=== PATIENT | female | born 1985 | race Caucasian/White ===

== ENCOUNTER 2016-06-27 08:09 | Emergency (ER) | payer OTHER ==
[~2016-06-27] VITALS: Ht 160 cm; Wt 85.0 kg
[~2016-06-27 08:09] MED LIST: BCPILLS PO; BUPR-79 PO; IBUP-1050 PO; LXP/10 PO; MULT-506 PO; OMEG10007 PO; VILA1TAB PO
[2016-06-27 08:23] VITALS: TEMP 36.7; Ht 160 cm; Wt 85.0 kg
--- NOTE | 2016-06-27 08:53 | EMERGENCY ROOM VISIT NOTE ---
History First contact with patient: 08:23 Chief Complaint: CHEST PAIN Stated Complaint: CHEST PAIN Nursing Triage Summary: pt here with chest pain x one hour that began while eating breakfast. pt states is sob. pt states pain is crushing. lungs clear. no hx. pt has only hx of depression and states has been under more stress. History of Present Illness The patient is a 31 year old female who presents to the Emergency Room with complaints of chest pain. The patient states that her chest pain started this morning during breakfast. She states that it is nonradiating and crushing. She rates her discomfort an 8/10. She states she has mild shortness of breath and pain with deep inspiration. The patient states she has also had mild nausea and palpitations. She denies earache, sore throat, cough or fever. She states she was recently treated for sinus infection several weeks ago. She denies any abdominal pain. She denies any history of similar. The patient has a history of depression and anxiety. She states she is taking her medications as prescribed. She denies any suicidal or homicidal patient. She does not wish to speak with behavioral health counselor. She states she has a counselor and has an appointment tomorrow. Review of Systems A 10 system review of systems was completed with positives and pertinent negatives listed in the HPI. Past Medical/Surgical History Medical Problems: (1) Anxiety (2) Depression Family History Patient reports no known family medical history. Social History Smoking Status: Never Smoker Alcohol Use: none Drug Use: none Marital Status: in relationship Housing Status: lives with roommate Occupation Status: [employer] student Current/Historical Medications Scheduled Control Pills ( Control Pills), 1 TAB PO DAILY Bupropion (Wellbutrin Sr), 150 MG PO DAILY Escitalopram Oxalate (Lexapro), 10 MG PO DAILY Fish Oil ([place]itcher-3), 1 CAP PO DAILY Multivitamin (Multivitamin), 1 TAB PO DAILY Scheduled PRN Ibuprofen (Advil), 400 MG PO BID PRN for Pain Lorazepam (Ativan), 1 TAB PO Q6H PRN for Anxiety/Agitation Allergies Coded Allergies: Fluoxetine (Verified Allergy, Intermediate, SHORTNESS OF BREATH, 06/27/16) Physical Exam Vital Signs Date Time Temp Pulse Resp B/P Pulse Ox O2 Delivery O2 Flow Rate FiO2 06/27/16 09:51 93 16 115/78 98 Room Air 06/27/16 08:23 36.7 80 16 159/124 95 Room Air 06/27/16 08:23 88 Physical Exam VITALS: Vitals are noted on the nurse's note and reviewed by myself. Vital signs stable. GENERAL: This is a 31-year-old female, in no acute distress, nondiaphoretic, well-developed well-nourished. SKIN: The skin was without rashes, erythema, edema, or bruising. There is no tenting of the skin. Capillary reflex less than 2 seconds. HEAD: Normocephalic atraumatic. EARS: External auditory canals clear, tympanic membranes pearly bose without erythema or effusion bilaterally. EYES: Pupils equal round and reactive to light and accommodation. Conjunctivae without injection, sclerae without icterus. Extraocular movements intact. NOSE: Patent, turbinates without inflammation or discharge. MOUTH: Mucous membranes moist. Tonsils are not enlarged. Pharynx without erythema or exudate. Uvula midline. Airway patent. Tongue does not deviate. NECK: Supple without nuchal rigidity. No lymphadenopathy. No thyromegaly. Cervical spine is nontender. No JVD. HEART: Regular rate and rhythm without murmurs gallops or rubs. LUNGS: Clear to auscultation bilaterally without wheezes, rales or rhonchi. No retractions or accessory muscle use. ABDOMEN: Positive bowel sounds x 4. Soft, nontender, without masses or organomegaly. MUSCULOSKELETAL: No muscle atrophy, erythema, or edema noted. Full range of motion without joint tenderness in all extremities. Normal gait. Strength 5/ 5 throughout. NEURO: Patient was alert and oriented to person place and time. The patient has an extremely flat affect. No focal neurological deficits. Medical Decision & Procedures ER Provider Diagnostic Interpretation: CHEST ONE VIEW PORTABLE HISTORY: Atypical chest pain COMPARISON: Chest 07/25/2015. FINDINGS: The lungs are clear. Cardiac silhouette is normal in size. No pleural effusions. No pneumothorax. IMPRESSION: No acute process. Laboratory Results 06/27/16 08:20 Red Blood Count 5.12, Mean Corpuscular Volume 87.1, Mean Corpuscular Hemoglobin 30.1, Mean Corpuscular Hemoglobin Concent 34.5, Mean Platelet Volume 11.1, Neutrophils (%) (Auto) 58.2, Lymphocytes (%) (Auto) 27.4, Monocytes (%) (Auto) 10.6, Eosinophils (%) (Auto) 3.3, Basophils (%) (Auto) 0.3, Neutrophils # (Auto ) 3.67, Lymphocytes # (Auto) 1.73, Monocytes # (Auto) 0.67, Eosinophils # (Auto ) 0.21, Basophils # (Auto) 0.02 06/27/16 08:20 Test 06/27/16 08:20 06/27/16 09:40 White Blood Count 6.31 K/uL (4.8-10.8) Red Blood Count 5.12 M/uL (4.2-5.4) Hemoglobin 15.4 g/dL (12.0-16.0) Hematocrit 44.6 % (37-47) Mean Corpuscular Volume 87.1 fL (80-100) Mean Corpuscular Hemoglobin 30.1 pg (25-34) Mean Corpuscular Hemoglobin Concent 34.5 g/dl (32-36) Platelet Count 332 K/uL (130-400) Mean Platelet Volume 11.1 fL (7.4-10.4) Neutrophils (%) (Auto) 58.2 % Lymphocytes (%) (Auto) 27.4 % Monocytes (%) (Auto) 10.6 % Eosinophils (%) (Auto) 3.3 % Basophils (%) (Auto) 0.3 % Neutrophils # (Auto) 3.67 K/uL (1.4-6.5) Lymphocytes # (Auto) 1.73 K/uL (1.2-3.4) Monocytes # (Auto) 0.67 K/uL (0.11-0.59) Eosinophils # (Auto) 0.21 K/uL (0-0.5) Basophils # (Auto) 0.02 K/uL (0-0.2) RDW Standard Deviation 43.2 fL (36.4-46.3) RDW Coefficient of Variation 13.5 % (11.5-14.5) Immature Granulocyte % (Auto) 0.2 % Immature Granulocyte # (Auto) 0.01 K/uL (0.00-0.02) Prothrombin Time 10.1 SECONDS (9.0-12.0) Prothromb Time International Ratio 0.9 (0.9-1.1) Activated Partial Thromboplast Time 28.5 SECONDS (21.0-31.0) Partial Thromboplastin Ratio 1.1 D-Dimer 210 ug/L FEU (0-500) Anion Gap 9.0 mmol/L (3-11) Est Creatinine Clear Calc Drug Dose 92.9 ml/min Estimated GFR () 98.7 Estimated GFR (Non- 85.2 BUN/Creatinine Ratio 10.0 (10-20) Calcium Level 9.0 mg/dl (8.5-10.1) Total Bilirubin 0.4 mg/dl (0.2-1) Aspartate Amino Transf (AST/SGOT) 15 U/L (15-37) Alanine Aminotransferase (ALT/SGPT) 27 U/L (12-78) Alkaline Phosphatase 75 U/L (45-117) Troponin I < 0.015 ng/ml (0-0.045) Total Protein 7.8 gm/dl (6.4-8.2) Albumin 3.7 gm/dl (3.4-5.0) Globulin 4.1 gm/dl (2.5-4.0) Albumin/Globulin Ratio 0.9 (0.9-2) Lipase 203 U/L (73-393) Thyroid Stimulating Hormone (TSH) 2.010 uIu/ml (0.300-4.500) Urine Color YELLOW Urine Appearance CLOUDY (CLEAR) Urine pH 7.0 (4.5-7.5) Urine Specific [place] 1.015 (1.000-1.030) Urine Protein NEG (NEG) Urine Glucose (UA) NEG (NEG) Urine Ketones NEG (NEG) Urine Occult Blood TRACE (NEG) Urine Nitrite NEG (NEG) Urine Bilirubin NEG (NEG) Urine Urobilinogen NEG (NEG) Urine Leukocyte Esterase NEG (NEG) Urine RBC 0-4 /hpf (0-4) Urine WBC 1-5 /hpf (0-5) Urine Epithelial Cells 5-10 /lpf (0-5) Urine Amorphous Sediment PRESENT (NONE PRSENT) Urine Bacteria 1+ (NEG) Medications Administered Medications (Trade) Dose Ordered Sig/Juan M Route Start Time Stop Time Status Last Admin Dose Admin Al Hydroxide/Mg Hydroxide (Maalox Susp) 30 ml STK-MED ONCE .ROUTE 06/27/16 09:49 06/27/16 09:50 DC 06/27/16 09:49 30 ML Lidocaine HCl (Viscous Lidocaine 2% Soln) 20 ml STK-MED ONCE .ROUTE 06/27/16 09:49 06/27/16 09:50 DC 06/27/16 09:49 20 ML Procedure The patient was monitored on a score caller. They maintained a normal sinus rhythm without ectopy. ECG Indication: chest pain Rate (beats per minute): 82 Comparison ECG Date: no prior available ED Course The patient was seen and examined. Previous visits were reviewed. The patient does not have a fever or leukocytosis. She does not have any significant electrolyte abnormality. Troponin was not elevated. Lipase was not elevated. TSH was within normal limits. INR was 0.9. D-dimer was negative. Urinalysis suggests contamination. EKG does not reveal any acute ischemia or arrhythmia The patient presents to the emergency department with nonradiating chest pain. The above workup does not reveal any obvious abnormality. The patient has an extremely flat affect. The patient has a history of depression, anxiety and states she has had panic attacks in the past. She did not wish to speak with a therapist today. She denied any suicidal or homicidal ideation. She does have an appointment with her counselor tomorrow. The patient was given a GI cocktail with no improvement in her symptoms. I did agree to give her a very small prescription for Ativan. She should return to the ER with any worsening symptoms. The case was discussed with Dr. Chavez who agrees with the assessment and treatment plan Medical Decision DIFFERENTIAL DIAGNOSIS: Aortic dissection, myocarditis, pericarditis, cervical disc disease, costochondritis, herpes zoster, rib fracture, pleuritis, pneumonia , pulmonary embolus, tension pneumothorax, anxiety disorder, somatoform disorder , choledocholithiasis, status, esophagitis, esophageal spasm, esophageal reflux , esophageal rupture, pancreatitis, peptic ulcer disease, cardiac ischemia, ST elevation [place], acute coronary syndrome, arrhythmia, coronary artery vasospasm. vavular heart disease, coronary artery disease, among others. Impression Primary Impression: Substernal precordial chest pain Additional Impression: Anxiety Departure Information Dispostion Home / Self-Care Condition GOOD Prescriptions Lorazepam (ATIVAN) 1 Mg Tab 1 TAB PO Q6H Y for Anxiety/Agitation, #12 TAB Prov: Celeste Clark PA-C 06/27/16 Referrals [facility] (PCP) Forms HOME CARE DOCUMENTATION FORM, IMPORTANT VISIT INFORMATION, School Instructions Patient Instructions Chest Pain - [facility], ED Panic Attack, My [facility] Additional Instructions Ativan only as needed, as prescribed Keep your appointment with your counselor tomorrow as scheduled Return with any worsening symptoms Otherwise, follow up with your family doctor by the end of the week if symptoms persist Problem Qualifiers
[2016-06-27 08:56] LABS: BASO % 0.3 %; BASO ABS # 0.02 K/uL (0-0.2); COMPLETE YES; EOS % 3.3 %; HEMATOCRIT 44.6 % (37-47); IG% 0.2 %; LYMPH % 27.4 %; LYMPH ABS # 1.73 K/uL (1.2-3.4); MEAN CELL VOLUME 87.1 fL (80-100); MEAN CORPUSCULAR HEMOGLOBIN 30.1 pg (25-34); MEAN CORPUSCULAR HGB CONC 34.5 g/dl (32-36); MEAN PLATELET VOLUME 11.1 fL (7.4-10.4); MONO % 10.6 %; NEUT % 58.2 %; PLATELET COUNT 332 K/uL (130-400); RED BLOOD COUNT 5.12 M/uL (4.2-5.4); WHITE BLOOD COUNT 6.31 K/uL (4.8-10.8)
--- NOTE | 2016-06-27 09:01 | DIAGNOSTIC IMAGING REPORT ---
CHEST ONE VIEW PORTABLE HISTORY: Atypical chest pain COMPARISON: Chest 07/25/2015. FINDINGS: The lungs are clear. Cardiac silhouette is normal in size. No pleural effusions. No pneumothorax. IMPRESSION: No acute process. Electronically signed by: William Hair M.D. 06/27/2016 9:00 AM Dictated Date/Time: 06/27/2016 8:59 AM
[2016-06-27 09:03] LABS: ALT/SGPT 27 U/L (12-78); BLOOD UREA NITROGEN 9 mg/dl (7-18); CARBON DIOXIDE 25 mmol/L (21-32); CHLORIDE 106 mmol/L (98-107); CREATININE 0.89 mg/dl (0.60-1.20); GLUCOSE 101 mg/dl (70-99); POTASSIUM 3.9 mmol/L (3.5-5.1); SODIUM 140 mmol/L (136-145)
[2016-06-27 09:14] LABS: ALB/GLOB RATIO 0.9 (0.9-2); ALKALINE PHOSPHATASE 75 U/L (45-117); AST/SGOT 15 U/L (15-37)
[2016-06-27 09:18] LABS: INR 0.9 (0.9-1.1); PARTIAL THROMBOPLASTIN RATIO 1.1; PROTHROMBIN TIME (PATIENT) 10.1 SECONDS (9.0-12.0)
[2016-06-27] MEDS ORDERED: GI COCKTAIL PO STA (09:36)
[2016-06-27] MEDS ORDERED: ALUMINUM/MAGNESIUM SUSP 30 ML UDC ONE (09:49)
[2016-06-27] MEDS ORDERED: LIDOCAINE HCL 2% VISC SOLN 20 ML UDC ONE (09:49)
[2016-06-27 09:51] VITALS: BP 115/78; PULSE 93; O2SAT 98
[2016-06-27 10:06] LABS: MANUAL MICROSCOPIC REQUIRED? YES; URINE APPEARANCE CLOUDY (CLEAR); URINE BILIRUBIN NEG (NEG); URINE COLOR YELLOW; URINE NITRITE NEG (NEG); URINE SPECIFIC GRAVITY 1.015 (1.000-1.030); UROBILINOGEN NEG (NEG)
[2016-06-27] MEDS ORDERED: ATV/1 PO (10:06)
[2016-06-27 10:10] LABS: REVIEW REQ? NO
[2016-06-27 10:19] LABS: URINE AMORPHOUS SEDIMENT PRESENT (NONE PRSENT); URINE BACTERIA 1+ (NEG); URINE RBC 0-4 /hpf (0-4); ZZUR CULT IF INDIC CLEAN CATCH NO
== END 2016-06-27 10:13 | disposition home or self-care (01) ==
LOC: EDBD 08:09 → C.EDB 08:10
DX: R07.2 Precordial pain (principal); F41.9 Anxiety disorder, unspecified; F32.9 Major depressive disorder, single episode, unspecified; Z79.3 Long term (current) use of hormonal contraceptives; Z79.899 Other long term (current) drug therapy

== ENCOUNTER 2017-02-05 01:00 | Emergency (ER) | payer OTHER ==
[~2017-02-05] VITALS: Ht 162.6 cm; Wt 90.7 kg
[~2017-02-05 01:00] MED LIST changes: -VILA1TAB PO
[2017-02-05 01:03] VITALS: TEMP 36.8; Ht 162.6 cm; Wt 90.7 kg
--- NOTE | 2017-02-05 01:31 | EMERGENCY ROOM VISIT NOTE ---
History Report prepared by Adrianne: Nichole Marr Under the Supervision of: Dr. Joan Ram D.O. First contact with patient: 01:08 Chief Complaint: MENTAL HEALTH EVALUATION Stated Complaint: DEPRESSION History of Present Illness The patient is a 31 year old female who presents to the Emergency Room for a mental health evaluation. The patient has been feeling depressed recently and has a history of recurrent episodes of depression. She states she has been having worsening suicidal thoughts with no plan. She follows up with Dr. Gongora- psychiatrist at [facility] and notes recent changes to her psychiatry medications. She came to the ED because she states she "wanted to feel safe and to make sure I wouldn't hurt myself". She has been admitted for psychiatry reasons previously. She notes some nausea with her new medications but denies any chest pain, vomiting, diarrhea, leg cramping or swelling, or abdominal pain. Her last menstrual period was in November which is normal for the control she is on. She does not want a inpatient stay because she is afraid it will affect her graduation status. 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 She notes increased stress with school. The patient is on Wellbutrin for depression and had history of overdosing on pills in 2004. Source of History: patient Onset: tonight Position: other (global) Quality: other (suicidal ideations) Timing: worsening Associated Symptoms: + nausea, No fevers, No chest pain, No vomiting Review of Systems See HPI for pertinent positives & negatives. A total of 10 systems reviewed and were otherwise negative. Past Medical & Surgical Medical Problems: (1) Anxiety (2) Depression Family History Patient reports no known family medical history. Social History Smoking Status: Never Smoker Alcohol Use: none Drug Use: none Marital Status: in relationship Housing Status: lives with roommate Occupation Status: [employer] student Current/Historical Medications Scheduled Control Pills ( Control Pills), 1 TAB PO DAILY Bupropion (Wellbutrin Sr), 150 MG PO DAILY Escitalopram Oxalate (Lexapro), 10 MG PO DAILY Fish Oil ([place]-3), 1 CAP PO DAILY Multivitamin (Multivitamin), 1 TAB PO DAILY Vortioxetine HBr (Trintellix), 5 MG PO DAILY Scheduled PRN Ibuprofen (Advil), 400 MG PO BID PRN for Pain Lorazepam (Ativan), 1 MG PO DAILY PRN for panic attacks Allergies Coded Allergies: Fluoxetine (Verified Allergy, Intermediate, SHORTNESS OF BREATH, 02/05/17) Venlafaxine (Verified Allergy, Intermediate, uncontrolled left arm movement, 02/05/17) Physical Exam Vital Signs Date Time Temp Pulse Resp B/P (MAP) Pulse Ox O2 Delivery O2 Flow Rate FiO2 02/05/17 04:11 77 16 129/86 97 02/05/17 01:03 36.8 90 18 165/114 99 Room Air Physical Exam HEENT: Head - normocephalic and atraumatic Pupils are equal, round, and reactive to light. Extraocular eye muscles are intact, and sclera are anicteric. Nose - moist nasal mucosa without discharge. Mouth - moist buccal mucosa. Oropharynx is nonerythematous and there is no tonsillar exudate or edema noted. Neck: Supple; no JVD, nuchal rigidity, cervical lymphadenopathy. Heart: Regular rate and rhythm. There is a normal S1 and S2 with no murmurs, clicks, or gallops appreciated. Lungs: Clear to auscultation bilaterally with no wheezes, rales, or rhonchi. Abdomen: Soft, completely nontender, nondistended, with good bowel sounds. There are no palpable pulsatile masses or hepatosplenomegaly. There is no guarding, rigidity, or rebound noted. Extremities: No evidence of cyanosis, clubbing, or edema. There are easily palpable peripheral pulses. Skin: warm and dry with good turgor and no rashes. Psych: extremely flat affect, depressed and suicidal thoughts with no plan. Medical Decision & Procedures Laboratory Results 02/05/17 01:37 02/05/17 01:37 Test 02/05/17 01:18 02/05/17 01:37 Urine Color YELLOW Urine Appearance CLEAR (CLEAR) Urine pH 6.0 (4.5-7.5) Urine Specific [place] 1.018 (1.000-1.030) Urine Protein NEG (NEG) Urine Glucose (UA) NEG (NEG) Urine Ketones NEG (NEG) Urine Occult Blood TRACE (NEG) Urine Nitrite NEG (NEG) Urine Bilirubin NEG (NEG) Urine Urobilinogen NEG (NEG) Urine Leukocyte Esterase NEG (NEG) Urine WBC (Auto) 1-5 /hpf (0-5) Urine RBC (Auto) 5-10 /hpf (0-4) Urine Hyaline Casts (Auto) 0 /lpf (0-5) Urine Epithelial Cells (Auto) 0-5 /lpf (0-5) Urine Bacteria (Auto) NEG (NEG) Urine Test NEG (NEG) Urine Opiates Screen NEG (NEG) Urine Methadone, Qualitative NEG (NEG) Urine Barbiturates NEG (NEG) Urine Phencyclidine (PCP) Level NEG (NEG) Ur Amphetamine/Methamphetamine NEG (NEG) MDMA (Ecstasy) Screen POS (NEG) Urine Benzodiazepines Screen NEG (NEG) Urine Cocaine Metabolite NEG (NEG) Urine Marijuana (THC) NEG (NEG) Red Blood Count 4.78 M/uL (4.2-5.4) Mean Corpuscular Volume 85.1 fL (80-100) Mean Corpuscular Hemoglobin 28.5 pg (25-34) Mean Corpuscular Hemoglobin Concent 33.4 g/dl (32-36) RDW Standard Deviation 42.8 fL (36.4-46.3) RDW Coefficient of Variation 13.9 % (11.5-14.5) Mean Platelet Volume 9.9 fL (7.4-10.4) Anion Gap 12.0 mmol/L (3-11) Est Creatinine Clear Calc Drug Dose 105.2 ml/min Estimated GFR () 107.4 Estimated GFR (Non- 92.7 BUN/Creatinine Ratio 12.4 (10-20) Calcium Level 8.4 mg/dl (8.5-10.1) Total Bilirubin 0.2 mg/dl (0.2-1) Direct Bilirubin < 0.1 mg/dl (0-0.2) Aspartate Amino Transf (AST/SGOT) 13 U/L (15-37) Alanine Aminotransferase (ALT/SGPT) 25 U/L (12-78) Alkaline Phosphatase 78 U/L (45-117) Total Protein 7.4 gm/dl (6.4-8.2) Albumin 3.3 gm/dl (3.4-5.0) Thyroid Stimulating Hormone (TSH) 5.090 uIu/ml (0.300-4.500) Salicylates Level < 1.7 mg/dl (2.8-20) Acetaminophen Level < 2 ug/ml (10-30) Ethyl Alcohol mg/dL < 3.0 mg/dl (0-3) Laboratory results per my review. ED Course 0115: Past medical records reviewed. The patient was evaluated in room A6. A complete history and physical exam was performed. Labs were drawn as above. 0336: Staff from [address] [place] [address] went in and talked to the patient. She is no longer suicidal. The patient has an appointment with her therapist in 4 days and an appointment with her psychiatrist in 7 days. She is looking forward to the future and excited to spend Thanksgiving with her grandmother. 0401: I reevaluated the patient and she is resting comfortably. I confirmed that she is no longer suicidal. She does wish to go home. We talked about safety planning. 0430: Upon reevaluation, the patient is resting. I discussed findings and results with her. She verbalized agreement of the treatment plan. The patient was discharged home. Medical Decision The patient is a 31 year old female who presents to the Emergency Room for a mental health evaluation. Differential diagnosis includes:suicidal ideation, manuel disorder thought disorder, depression. Lab results show: alcohol negative, Tylenol negative, Motrin negative, Tox screen positive for MDMA, urine negative, 5-10 red blood cells in urine, TSH elevated at 5.0, glucose 104, normal renal function, normal LFTs, normal white count normal H & H. This is a 31-year-old female patient with a history of depression who presents after having some suicidal thoughts this evening. At this time, she is no longer suicidal and wishes to be discharged home. She has follow-up scheduled with her therapist and psychiatrist. On laboratory testing, the patient's TSH was noted to be elevated. I've asked her to follow-up with [facility] [place] with regards to this finding. This certainly could be contributing to her depression Blood Pressure Screening Patient's blood pressure: Normal blood pressure Impression Primary Impression: Mood disorder Additional Impression: Hypothyroidism Scribe Attestation The scribe's documentation has been prepared under my direction and personally reviewed by me in its entirety. I confirm that the note above accurately reflects all work, treatment, procedures, and medical decision making performed by me. Departure Information Dispostion Home / Self-Care Referrals No Doctor, Assigned (PCP) Forms HOME CARE DOCUMENTATION FORM, IMPORTANT VISIT INFORMATION Patient Instructions Depression Causes, Depression Counseling, My [facility] Additional Instructions Please follow up closely with your therapist on . Return here to the ER if symptoms worsen or you feel more suicidal Call MARYBETH - [phone] if needed Problem Qualifiers Additional Impression: Hypothyroidism Hypothyroidism type: unspecified Qualified Codes: E03.9 - Hypothyroidism, unspecified
[2017-02-05 01:36] LABS: MANUAL MICROSCOPIC REQUIRED? NO; REVIEW REQ? NO; URINE APPEARANCE CLEAR (CLEAR); URINE BILIRUBIN NEG (NEG); URINE COLOR YELLOW; URINE EPITHELIAL CELL AUTO 0-5 /lpf (0-5); URINE NITRITE NEG (NEG); URINE SPECIFIC GRAVITY 1.018 (1.000-1.030); UROBILINOGEN NEG (NEG)
[2017-02-05 01:50] LABS: HEMATOCRIT 40.7 % (37-47); MEAN CELL VOLUME 85.1 fL (80-100); MEAN CORPUSCULAR HEMOGLOBIN 28.5 pg (25-34); MEAN CORPUSCULAR HGB CONC 33.4 g/dl (32-36); MEAN PLATELET VOLUME 9.9 fL (7.4-10.4); PLATELET COUNT 322 K/uL (130-400); RED BLOOD COUNT 4.78 M/uL (4.2-5.4); WHITE BLOOD COUNT 9.55 K/uL (4.8-10.8)
[2017-02-05] MEDS ORDERED: VORT1TAB PO (01:50)
[2017-02-05] MEDS ORDERED: ATV/1 PO (01:50)
[2017-02-05 01:55] LABS: BENZODIAZEPINE, URINE NEG (NEG); COCAINE,URINE NEG (NEG); PHENCYCLIDINE, URINE NEG (NEG)
[2017-02-05 02:09] LABS: ALT/SGPT 25 U/L (12-78); AST/SGOT 13 U/L (15-37); BLOOD UREA NITROGEN 10 mg/dl (7-18); BUN/CREATININE RATIO 12.4 (10-20); CALCIUM 8.4 mg/dl (8.5-10.1); CARBON DIOXIDE 23 mmol/L (21-32); CHLORIDE 104 mmol/L (98-107); CREATININE 0.83 mg/dl (0.60-1.20); GLUCOSE 104 mg/dl (70-99); POTASSIUM 3.5 mmol/L (3.5-5.1); SODIUM 139 mmol/L (136-145)
[2017-02-05 02:20] LABS: ALKALINE PHOSPHATASE 78 U/L (45-117)
[2017-02-05 02:53] LABS: ACETAMINOPHEN < 2 ug/ml (10-30)
[2017-02-05 04:11] VITALS: BP 129/86; PULSE 77; O2SAT 97
[2017-02-05] MEDS ORDERED: BUPRTAB PO (11:16)
== END 2017-02-05 04:12 | disposition home or self-care (01) ==
LOC: C.EDB 01:01 → C.EDA 04:12
DX: F39 Unspecified mood [affective] disorder (principal); E03.9 Hypothyroidism, unspecified; F41.9 Anxiety disorder, unspecified; Z91.5 Personal history of self-harm; Z79.899 Other long term (current) drug therapy

== ENCOUNTER 2017-02-05 10:49 | Inpatient (IN) | payer OTHER ==
[~2017-02-05] VITALS: Ht 160 cm; Wt 89.9 kg
[~2017-02-05 10:49] MED LIST changes: +ATV/1 PO; +VORT1TAB PO
[2017-02-05] MEDS ORDERED: BUPRTAB PO (11:16)
[2017-02-05 11:29] LABS: URINE APPEARANCE CLEAR (CLEAR); URINE COLOR DK YELLOW; URINE EPITHELIAL CELL AUTO 20-30 /lpf (0-5); URINE NITRITE NEG (NEG); URINE PH 6.5 (4.5-7.5); URINE SPECIFIC GRAVITY 1.028 (1.000-1.030); UROBILINOGEN NEG (NEG); ZZUR CULT IF INDIC CLEAN CATCH NO
[2017-02-05 11:31] LABS: MANUAL MICROSCOPIC REQUIRED? NO; REVIEW REQ? NO
[2017-02-05 11:32] LABS: PREG INTERNAL NEGATIVE QC NEG CLEAR BACKGROUND; PREG INTERNAL POSITIVE QC POS CONTROL LINE; URINE BILIRUBIN NEG (NEG)
[2017-02-05 11:35] LABS: BASO % 0.4 %; BASO ABS # 0.03 K/uL (0-0.2); COMPLETE YES; EOS % 2.1 %; HEMATOCRIT 44.8 % (37-47); IG% 0.1 %; LYMPH % 24.1 %; LYMPH ABS # 1.81 K/uL (1.2-3.4); MEAN CORPUSCULAR HEMOGLOBIN 28.2 pg (25-34); MEAN CORPUSCULAR HGB CONC 32.8 g/dl (32-36); MEAN PLATELET VOLUME 10.1 fL (7.4-10.4); MONO % 7.2 %; NEUT % 66.1 %; PLATELET COUNT 363 K/uL (130-400); RED BLOOD COUNT 5.21 M/uL (4.2-5.4)
[2017-02-05 11:53] LABS: BUN/CREATININE RATIO 8.7 (10-20); CALCIUM 8.8 mg/dl (8.5-10.1); CREATININE 0.94 mg/dl (0.60-1.20); POTASSIUM 3.6 mmol/L (3.5-5.1)
[2017-02-05 12:02] LABS: ACETAMINOPHEN < 2 ug/ml (10-30)
[2017-02-05 12:04] LABS: ALB/GLOB RATIO 0.8 (0.9-2); THYROID STIMULATING HORMONE 3.79 uIu/ml (0.300-4.500)
[2017-02-05 13:17] LABS: BENZODIAZEPINE, URINE NEG (NEG); COCAINE,URINE NEG (NEG); PHENCYCLIDINE, URINE NEG (NEG)
--- NOTE | 2017-02-05 13:54 | EMERGENCY ROOM VISIT NOTE ---
History Report prepared by Adrianne: Vita Wade Under the Supervision of: Dr. Vicente Duran D.O. First contact with patient: 11:25 Chief Complaint: MENTAL HEALTH EVALUATION Stated Complaint: DEPRESSION History of Present Illness The patient is a 31 year old female who presents to the Emergency Room for a mental health evaluation. The patient has a history of depression. She has been feeling more depressed recently with suicidal thoughts. She denies any active suicidal plan. She states that she is having thoughts of not being able "to handle life anymore." The patient has been more stressed lately because of graduate school. She is having a hard time keeping up with her work "when I am too tired to brush my teeth." The patient was seen in the ED last night for these symptoms. She was discharged at 4am. At that time she was reporting depression with suicidal thoughts. She did not feel that she needed inpatient treatment at that time. She states that she was concerned inpatient treatment would affect her graduation status. The patient states that since she left the hospital this morning her symptoms have worsened. She states that she felt unable to go on with her day. She is now willing for inpatient treatment. The patient has been inpatient in the past during her time in undergraduate school. She states that school and the stress associated with school always seems to exacerbate her depression. Source of History: patient Onset: EXECUTIVE VICE PRESIDENT OF SALES Position: other (mental health) Quality: other (depression) Timing: worsening Modifying Factors (Worsening): other (school/stress) Associated Symptoms: + fatigue Note: Pt admits to suicidal thoughts. Review of Systems See HPI for pertinent positives & negatives. A total of 10 systems reviewed and were otherwise negative. Past Medical & Surgical Medical Problems: (1) Anxiety (2) Depression Family History Patient reports no known family medical history. Social History Smoking Status: Never Smoker Alcohol Use: none Drug Use: none Marital Status: in relationship Housing Status: lives with roommate Occupation Status: [employer] student Current/Historical Medications Scheduled Control Pills ( Control Pills), 1 TAB PO DAILY Bupropion Hcl (Wellbutrin Xl), 150 MG PO QAM Escitalopram Oxalate (Lexapro), 10 MG PO DAILY Fish Oil ([place]-3), 1 CAP PO DAILY Multivitamin (Multivitamin), 1 TAB PO DAILY Vortioxetine HBr (Trintellix), 5 MG PO DAILY Scheduled PRN Ibuprofen (Advil), 400 MG PO BID PRN for Pain Lorazepam (Ativan), 1 MG PO DAILY PRN for panic attacks Allergies Coded Allergies: Fluoxetine (Verified Allergy, Intermediate, SHORTNESS OF BREATH, 02/05/17) Venlafaxine (Verified Allergy, Intermediate, uncontrolled left arm movement, 02/05/17) Physical Exam Vital Signs Date Time Temp Pulse Resp B/P (MAP) Pulse Ox O2 Delivery O2 Flow Rate FiO2 02/05/17 10:52 37.0 102 16 152/108 97 Room Air Physical Exam CONSTITUTIONAL/VITAL SIGNS: Reviewed / noted above. GENERAL: Non-toxic in appearance. INTEGUMENTARY: Warm, dry, and [place]. HEAD: Normocephalic. EYES: without scleral icterus or trauma. ENT/OROPHARYNX: clear and moist. LYMPHADENOPATHY/NECK: Is supple without lymphadenopathy or meningismus. RESPIRATORY: Lungs clear and equal. CARDIOVASCULAR: Regular rate and rhythm. GI/ABDOMEN: Soft and nontender. No organomegaly or pulsatile mass. No rebound or guarding. Normal bowel sounds. EXTREMITIES: Warm and well perfused. BACK: No CVA tenderness. NEUROLOGICAL: Intact without focal deficits. PSYCHIATRIC: depressed affect. MUSCULOSKELETAL: Normally developed with good muscle tone. Medical Decision & Procedures Laboratory Results 02/05/17 11:15 Red Blood Count 5.21, Mean Corpuscular Volume 86.0, Mean Corpuscular Hemoglobin 28.2, Mean Corpuscular Hemoglobin Concent 32.8, Mean Platelet Volume 10.1, Neutrophils (%) (Auto) 66.1, Lymphocytes (%) (Auto) 24.1, Monocytes (%) (Auto) 7.2, Eosinophils (%) (Auto) 2.1, Basophils (%) (Auto) 0.4, Neutrophils # (Auto) 4.95, Lymphocytes # (Auto) 1.81, Monocytes # (Auto) 0.54, Eosinophils # (Auto) 0.16, Basophils # (Auto) 0.03 02/05/17 11:15 Test 02/05/17 11:12 02/05/17 11:15 Urine Color DK YELLOW Urine Appearance CLEAR (CLEAR) Urine pH 6.5 (4.5-7.5) Urine Specific [place] 1.028 (1.000-1.030) Urine Protein NEG (NEG) Urine Glucose (UA) NEG (NEG) Urine Ketones TRACE (NEG) Urine Occult Blood 1+ (NEG) Urine Nitrite NEG (NEG) Urine Bilirubin NEG (NEG) Urine Urobilinogen NEG (NEG) Urine Leukocyte Esterase NEG (NEG) Urine WBC (Auto) 1-5 /hpf (0-5) Urine RBC (Auto) 10-30 /hpf (0-4) Urine Hyaline Casts (Auto) 1-5 /lpf (0-5) Urine Epithelial Cells (Auto) 20-30 /lpf (0-5) Urine Bacteria (Auto) NEG (NEG) Urine Test NEG (NEG) Urine Opiates Screen NEG (NEG) Urine Methadone, Qualitative NEG (NEG) Urine Barbiturates NEG (NEG) Urine Phencyclidine (PCP) Level NEG (NEG) Ur Amphetamine/Methamphetamine NEG (NEG) MDMA (Ecstasy) Screen POS (NEG) Urine Benzodiazepines Screen NEG (NEG) Urine Cocaine Metabolite NEG (NEG) Urine Marijuana (THC) NEG (NEG) White Blood Count 7.50 K/uL (4.8-10.8) Red Blood Count 5.21 M/uL (4.2-5.4) Hemoglobin 14.7 g/dL (12.0-16.0) Hematocrit 44.8 % (37-47) Mean Corpuscular Volume 86.0 fL (80-100) Mean Corpuscular Hemoglobin 28.2 pg (25-34) Mean Corpuscular Hemoglobin Concent 32.8 g/dl (32-36) Platelet Count 363 K/uL (130-400) Mean Platelet Volume 10.1 fL (7.4-10.4) Neutrophils (%) (Auto) 66.1 % Lymphocytes (%) (Auto) 24.1 % Monocytes (%) (Auto) 7.2 % Eosinophils (%) (Auto) 2.1 % Basophils (%) (Auto) 0.4 % Neutrophils # (Auto) 4.95 K/uL (1.4-6.5) Lymphocytes # (Auto) 1.81 K/uL (1.2-3.4) Monocytes # (Auto) 0.54 K/uL (0.11-0.59) Eosinophils # (Auto) 0.16 K/uL (0-0.5) Basophils # (Auto) 0.03 K/uL (0-0.2) RDW Standard Deviation 43.4 fL (36.4-46.3) RDW Coefficient of Variation 13.8 % (11.5-14.5) Immature Granulocyte % (Auto) 0.1 % Immature Granulocyte # (Auto) 0.01 K/uL (0.00-0.02) Anion Gap 10.0 mmol/L (3-11) Est Creatinine Clear Calc Drug Dose 90.6 ml/min Estimated GFR () 92.4 Estimated GFR (Non- 79.7 BUN/Creatinine Ratio 8.7 (10-20) Calcium Level 8.8 mg/dl (8.5-10.1) Total Bilirubin 0.5 mg/dl (0.2-1) Aspartate Amino Transf (AST/SGOT) 16 U/L (15-37) Alanine Aminotransferase (ALT/SGPT) 27 U/L (12-78) Alkaline Phosphatase 92 U/L (45-117) Total Protein 8.3 gm/dl (6.4-8.2) Albumin 3.7 gm/dl (3.4-5.0) Globulin 4.6 gm/dl (2.5-4.0) Albumin/Globulin Ratio 0.8 (0.9-2) Thyroid Stimulating Hormone (TSH) 3.790 uIu/ml (0.300-4.500) Salicylates Level < 1.7 mg/dl (2.8-20) Acetaminophen Level < 2 ug/ml (10-30) Ethyl Alcohol mg/dL < 3.0 mg/dl (0-3) Laboratory results as stated above per my review. ED Course 1125: Previous medical records were reviewed. The patient was evaluated in room A8. A complete history and physical examination was performed. 1404: I updated the patient and she is doing well. 1428: The patient has been accepted to [facility] for further management. Medical Decision Differential includes toxic ingestions, self-mutilation, suicidal ideation, suicide attempt, and depression. This is a 31-year-old female who presents to the ED with a chief complaint of depression and suicidal thoughts. The patient has no plan. She was seen here less than 24 hours for the same. At the time she felt that she was able to go home and she was felt to be stable for discharge. The patient reports stressors at school as a cause for her symptoms. Her physical exam was unremarkable. Blood work was unremarkable. She is not . Tox screen did not show any significant abnormalities. The patient was felt to be stable for psychiatric evaluation/inpatient management and her discharge pending formal mental health evaluation. The patient has been accepted to [facility]. Medication Reconcilliation Current Medication List: was personally reviewed by me Blood Pressure Screening Patient's blood pressure: Elevated blood pressure Blood pressure disposition: Elevated BP felt to be situational Impression Primary Impression: Depression Scribe Attestation The scribe's documentation has been prepared under my direction and personally reviewed by me in its entirety. I confirm that the note above accurately reflects all work, treatment, procedures, and medical decision making performed by me. Departure Information Referrals No Doctor, Assigned (PCP) Patient Instructions My [facility]
[2017-02-05] MEDS ORDERED: BISMUTH SUBSALICYLATE PER ML OMNICELL CHARGE PO PRN (15:30)
[2017-02-05] MEDS ORDERED: MAGNESIUM HYDROXIDE SUSP 30 ML UDC PO PRN (15:30)
[2017-02-05] MEDS ORDERED: ALUMINUM/MAGNESIUM SUSP 30 ML UDC PO PRN (15:30)
[2017-02-05] MEDS ORDERED: hydrOXYzine HCL 25 MG TAB PO PRN ×2 (15:30)
[2017-02-05] MEDS ORDERED: ACETAMINOPHEN 325 MG TAB PO PRN (15:30)
[2017-02-05] MEDS ORDERED: SODIUM CHLORIDE 0.65% NA SOLN 45 ML (OCEAN) PRN (15:30)
[2017-02-05] MEDS ORDERED: IBUPROFEN 200 MG TAB PO PRN (15:30)
[2017-02-05] MEDS ORDERED: LORAZEPAM 1 MG TAB PO PRN (15:30)
[2017-02-05 16:19] VITALS: O2SAT 98
[2017-02-05] MEDS ORDERED: NON-FORMULARY MEDICATION ONE ×2 (16:30)
[2017-02-05] MEDS ORDERED: BuPROPion XL 150 MG TABCR PO ONE (16:30)
[2017-02-05] MEDS ORDERED: ESCITALOPRAM OXALATE 10 MG TAB PO ONE (16:30)
[2017-02-05 17:10] VITALS: BP 113/78; PULSE 84; TEMP 37; Ht 160 cm; Wt 89.9 kg
[2017-02-05] MEDS ORDERED: INFLUENZA ADMINISTRATION CHARGE ONE (18:45)
[2017-02-05] MEDS ORDERED: INFLUENZA VIRUS QUAD VACCINE 0.5 ML SYR IM. ONE (18:45)
[2017-02-05] MEDS: VORTIOXETINE HBR PO SCH (21:55)
[2017-02-05] MEDS: LEVONORGESTREL PO SCH (21:58)
[2017-02-05] MEDS: ETHINYL ESTRADIOL PO SCH (21:58)
[2017-02-05] MEDS: [UNRECOGNIZED DRUG - OTHER] PO SCH (21:58)
[2017-02-06] MEDS ORDERED: BIRTH CONTROL - ORDER AWAITING ACTION SCH
[2017-02-06 06:49] VITALS: BP_SYST 133; BP_SYST 135; BP_DIAS 87; BP_DIAS 93; PULSE 85; PULSE 88; TEMP 36.8
[2017-02-06] MEDS: MULTIVITAMIN TAB PO SCH (08:56)
[2017-02-06] MEDS: ESCITALOPRAM OXALATE 10 MG TAB PO SCH (08:56)
[2017-02-06] MEDS: [UNRECOGNIZED DRUG - OTHER] PO SCH (08:56)
[2017-02-06] MEDS: LEVONORGESTREL PO SCH (08:56)
[2017-02-06] MEDS: ETHINYL ESTRADIOL PO SCH (08:56)
[2017-02-06] MEDS: VORTIOXETINE HBR PO SCH (08:57)
[2017-02-06] MEDS: BuPROPion XL 150 MG TABCR PO SCH (08:57)
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
[2017-02-07 07:01] VITALS: BP_SYST 116; BP_SYST 125; BP_DIAS 78; BP_DIAS 82; PULSE 78; PULSE 79; TEMP 36.4
[2017-02-07] MEDS: MULTIVITAMIN TAB PO SCH (08:53)
[2017-02-07] MEDS: [UNRECOGNIZED DRUG - OTHER] PO SCH (08:53)
[2017-02-07] MEDS: OMEGA-3 (PURIFIED FISH OIL) 1 GM CAP PO SCH (08:53)
[2017-02-07] MEDS: ETHINYL ESTRADIOL PO SCH (08:53)
[2017-02-07] MEDS: ESCITALOPRAM OXALATE 10 MG TAB PO SCH (08:53)
[2017-02-07] MEDS: LEVONORGESTREL PO SCH (08:53)
[2017-02-07] MEDS: BuPROPion XL 150 MG TABCR PO SCH (08:54)
[2017-02-07] MEDS: VORTIOXETINE HBR 5 MG TAB PO SCH (08:54)
--- NOTE | 2017-02-07 13:24 | Psychiatric Progress Notes ---
Progress Note Date of Service Feb 07, 2017. Interval History 31-year-old woman with a long history of depression, admitted voluntarily with suicidality feeling unable to function. She has had many trials of medications with no single robust response. According to the patient Dr. Gongora has been planning to titrate up onTrintellix with the hope to get her off of Lexapro. We will obtain her outpatient records. In the meanwhile, we will increase Trintellix to 10 mg daily while we attempt to pre-authorized as the patient is currently using samples. I have also suggested to her and will provide her information regarding transcranial magnetic stimulation (TMS) as she may benefit from an alternate mechanism of treatment. She is concerned about getting further behind in her work based on being in the hospital too long and is hopeful to be discharged with in 3-4 days. She did not make an attempt and so therefore she is not committable and we will work with her toward an expeditious discharge. At this time however, she requires inpatient mental health treatment due to the severity of her condition, inability to function outside of a structured environment, and increasing suicidality. Chief Complaint "OK.". Subjective Patient was seen & assessed interval progress reviewed with Treatment Team. The patient had some trouble falling asleep last night, took some vistaril and today is feeling somewhat hungover. She was worried that she would snore and keep her roommate awake. she has been attending groups and says that much of the information is not new to her, but has not been using it recently. We reviewed the copay for Trintellix and she says that her grandmother has agreed to help her with the cost if needed. She denies side effects to the new dose today. 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 She had her grandmother look up TMS and review. Grandmother relayed concerns about the treatment based on an uncle who had persistent Onofre's Palsy. Review of Systems Constitutional: + fatigue ENT: No hearing loss, No unusual epistaxis, No nasal symptoms, No sore throat, No tinnitus, No dental problems, No trouble swallowing, No problem reported Respiratory: No cough, No sputum, No wheezing, No shortness of breath, No dyspnea on exertion, No dyspnea at rest, No hemoptysis, No problem reported Cardiovascular: No chest pain, No orthopnea, No PND, No edema, No claudication , No palpitations, No problem reported Abdomen: No pain, No nausea, No vomiting, No diarrhea, No constipation, No GI bleeding, No problem reported Musculoskeletal: No joint pain, No muscle pain, No swelling, No calf pain, No problem reported Neurologic: No memory loss, No paralysis, No weakness, No numbness/tingling, No vertigo, No balance problems, No problem reported Psychiatric: + depression symptoms Integumentary: No rash, No itch, No new/changing skin lesions, No color change , No bleeding, No problem reported Sleep Information Total Hours of Sleep: 7.00 Meal Information Percent of Breakfast Consumed: 100 Percent of Lunch Consumed: 100 Percent of Dinner Consumed: 90 Mental Status Exam During interview pt is: alert and oriented, cooperative Appearance: appropriately dressed, appropriately groomed Eye contact is: good Motor behavior is: steady gait & station, no abnormal motor movements Speech: normal in rate, rhythm & volume Affect: depressed, tearful Mood is: depressed Thought process: goal directed Thought content: reality based without delusions Suicidal thought are: present, Plan: denied, Intent: denied Homicidal thoughts are: denied Hallucinations: denies auditory, denies visual Cognition: memory grossly intact, attention grossly intact, language grossly intact Intelligence estimated to be: average Insight: impaired Judgement: impaired Impression Adjusting well to the structure and support of the milieu. Trintellix preauth' d and affordable. Will continue 10 mg. today. Patient coming to the realization that she has been pushing herself to keep up with the pace of her younger counterparts, and that perhaps slowing down would not be a bad idea. Plan (1) Major depressive disorder, recurrent severe without psychotic features 02/06 - For now will increase Trintellix to 10 mg daily and proceed with a preauthorization. - Continue current doses of Lexapro and Wellbutrin - Obtain outpatient records from Dr. Morgan. - Coordinate with her outpatient therapist - Family meeting if indicated or possibly with roommate - Every 15 minute checks for safety - Encourage participation in group and individual counseling - Assist the patient to explore and utilize healthy coping strategies - Encourage daily exercise - Provide the patient with information regarding TMS - Communicate with the office of student affairs as needed 02/07 - Trintellix copay $60 per month and can afford. Continue 10 mg. daily Has been reviewed with Dr. Letha De La Cruz Discharge / Aftercare Planning Primary Care Physician: Name: [facility] Appointment Notes: As needed Psychiatrist: Name: [facility] Date of Appointment: Feb 12, 2017 Time of Appointment: 3:30pm Therapist: Name: Joaquina Soto Date of Appointment: Feb 12, 2017 Time of Appointment: 11:00am Visit Code E&M Code: 71646 Inventory Assets Strengths: Intelligence, willingness to engage in treatment Needs: To increase healthy coping strategies Risk Factors Assessment : Yes /single/: Yes Higher / Fall in social status: No Health problems: No Mental Health Diagnoses: Yes Substance use disorders: No Previous attempt: Yes Family history of suicide: No Previous psychiatric stay: Yes Hopelessness: No Smoker: No Protective Factors Assessment : No Responsible for young children: No Employed: No Stable relationships: Yes Supportive family: No Good rapport with provider: Yes Data Vital Signs Last 24 Hrs: Date Time Temp Pulse Resp B/P (MAP) Pulse Ox O2 Delivery O2 Flow Rate FiO2 02/07/17 07:01 36.4 79 16 125/82 78 116/78 Meds Administered Last 24 Hrs: Meds Administered (Past 24Hrs) Medications (Trade) Dose Ordered Sig/Juan M Route Start Time Stop Time Status Last Admin Dose Admin Hydroxyzine HCl (Vistaril Tab) 50 mg HSZ PRN PO 02/05/17 15:30 03/07/17 15:29 02/06/17 23:41 50 MG Bupropion HCl (Wellbutrin-Xl Tab) 150 mg QAM PO 02/06/17 09:00 03/08/17 08:59 02/07/17 08:54 150 MG Escitalopram Oxalate (Lexapro Tab) 10 mg DAILY PO 02/06/17 09:00 03/08/17 08:59 02/07/17 08:53 10 MG Multivitamins (Multivitamin Tab) 1 tab DAILY PO 02/06/17 09:00 03/08/17 08:59 02/07/17 08:53 1 TAB Bupropion HCl (Wellbutrin-Xl Tab) 150 mg 1630 ONCE PO 02/05/17 16:30 02/05/17 16:43 DC 02/05/17 17:16 150 MG Escitalopram Oxalate (Lexapro Tab) 10 mg 1630 ONCE PO 02/05/17 16:30 02/05/17 16:43 DC 02/05/17 17:16 10 MG Influenza Virus Vaccine Quadrival (Flucelvax Quad Vaccine) 0.5 ml ONCE ONCE IM. 02/05/17 18:45 02/05/17 18:46 DC 02/05/17 20:46 0.5 ML Ethinyl Estradiol/ Levonorgestrel (Jolessa) 1 tab DAILY PO 02/06/17 09:00 03/08/17 08:59 02/07/17 08:53 1 TAB Vortioxetine (Trintellix) 5 mg DAILY PO 02/05/17 22:00 02/06/17 10:56 DC 02/06/17 08:57 5 MG Vortioxetine (Trintellix) 10 mg QAM PO 02/07/17 09:00 03/09/17 08:59 02/07/17 08:54 10 MG Fish Oil ([place]-3 (Purified Fish Oil) Cap) 1 gm DAILY PO 02/07/17 09:00 03/09/17 08:59 02/07/17 08:53 1 GM Lab Results Last 24 Hrs: 02/05/17 11:15 Red Blood Count 5.21, Mean Corpuscular Volume 86.0, Mean Corpuscular Hemoglobin 28.2, Mean Corpuscular Hemoglobin Concent 32.8, Mean Platelet Volume 10.1, Neutrophils (%) (Auto) 66.1, Lymphocytes (%) (Auto) 24.1, Monocytes (%) (Auto) 7.2, Eosinophils (%) (Auto) 2.1, Basophils (%) (Auto) 0.4, Neutrophils # (Auto) 4.95, Lymphocytes # (Auto) 1.81, Monocytes # (Auto) 0.54, Eosinophils # (Auto) 0.16, Basophils # (Auto) 0.03 02/05/17 11:15 Test 02/05/17 11:12 02/05/17 11:15 Urine Color DK YELLOW Urine Appearance CLEAR (CLEAR) Urine pH 6.5 (4.5-7.5) Urine Specific [place] 1.028 (1.000-1.030) Urine Protein NEG (NEG) Urine Glucose (UA) NEG (NEG) Urine Ketones TRACE (NEG) Urine Occult Blood 1+ (NEG) Urine Nitrite NEG (NEG) Urine Bilirubin NEG (NEG) Urine Urobilinogen NEG (NEG) Urine Leukocyte Esterase NEG (NEG) Urine WBC (Auto) 1-5 /hpf (0-5) Urine RBC (Auto) 10-30 /hpf (0-4) Urine Hyaline Casts (Auto) 1-5 /lpf (0-5) Urine Epithelial Cells (Auto) 20-30 /lpf (0-5) Urine Bacteria (Auto) NEG (NEG) Urine Test NEG (NEG) Urine Opiates Screen NEG (NEG) Urine Methadone, Qualitative NEG (NEG) Urine Barbiturates NEG (NEG) Urine Phencyclidine (PCP) Level NEG (NEG) Ur Amphetamine/Methamphetamine NEG (NEG) MDMA (Ecstasy) Screen POS (NEG) Urine Benzodiazepines Screen NEG (NEG) Urine Cocaine Metabolite NEG (NEG) Urine Marijuana (THC) NEG (NEG) White Blood Count 7.50 K/uL (4.8-10.8) Red Blood Count 5.21 M/uL (4.2-5.4) Hemoglobin 14.7 g/dL (12.0-16.0) Hematocrit 44.8 % (37-47) Mean Corpuscular Volume 86.0 fL (80-100) Mean Corpuscular Hemoglobin 28.2 pg (25-34) Mean Corpuscular Hemoglobin Concent 32.8 g/dl (32-36) Platelet Count 363 K/uL (130-400) Mean Platelet Volume 10.1 fL (7.4-10.4) Neutrophils (%) (Auto) 66.1 % Lymphocytes (%) (Auto) 24.1 % Monocytes (%) (Auto) 7.2 % Eosinophils (%) (Auto) 2.1 % Basophils (%) (Auto) 0.4 % Neutrophils # (Auto) 4.95 K/uL (1.4-6.5) Lymphocytes # (Auto) 1.81 K/uL (1.2-3.4) Monocytes # (Auto) 0.54 K/uL (0.11-0.59) Eosinophils # (Auto) 0.16 K/uL (0-0.5) Basophils # (Auto) 0.03 K/uL (0-0.2) RDW Standard Deviation 43.4 fL (36.4-46.3) RDW Coefficient of Variation 13.8 % (11.5-14.5) Immature Granulocyte % (Auto) 0.1 % Immature Granulocyte # (Auto) 0.01 K/uL (0.00-0.02) Anion Gap 10.0 mmol/L (3-11) Est Creatinine Clear Calc Drug Dose 90.6 ml/min Estimated GFR () 92.4 Estimated GFR (Non- 79.7 BUN/Creatinine Ratio 8.7 (10-20) Calcium Level 8.8 mg/dl (8.5-10.1) Total Bilirubin 0.5 mg/dl (0.2-1) Aspartate Amino Transf (AST/SGOT) 16 U/L (15-37) Alanine Aminotransferase (ALT/SGPT) 27 U/L (12-78) Alkaline Phosphatase 92 U/L (45-117) Total Protein 8.3 gm/dl (6.4-8.2) Albumin 3.7 gm/dl (3.4-5.0) Globulin 4.6 gm/dl (2.5-4.0) Albumin/Globulin Ratio 0.8 (0.9-2) Thyroid Stimulating Hormone (TSH) 3.790 uIu/ml (0.300-4.500) Salicylates Level < 1.7 mg/dl (2.8-20) Acetaminophen Level < 2 ug/ml (10-30) Ethyl Alcohol mg/dL < 3.0 mg/dl (0-3)
[2017-02-08 06:47] VITALS: BP_SYST 126; BP_SYST 129; BP_DIAS 76; BP_DIAS 88; PULSE 81; PULSE 93; TEMP 36.9
[2017-02-08] MEDS: OMEGA-3 (PURIFIED FISH OIL) 1 GM CAP PO SCH (08:53)
[2017-02-08] MEDS: MULTIVITAMIN TAB PO SCH (08:53)
[2017-02-08] MEDS: LEVONORGESTREL PO SCH (08:53)
[2017-02-08] MEDS: BuPROPion XL 150 MG TABCR PO SCH (08:53)
[2017-02-08] MEDS: ESCITALOPRAM OXALATE 10 MG TAB PO SCH (08:53)
[2017-02-08] MEDS: ETHINYL ESTRADIOL PO SCH (08:53)
[2017-02-08] MEDS: [UNRECOGNIZED DRUG - OTHER] PO SCH (08:53)
[2017-02-08] MEDS: VORTIOXETINE HBR 5 MG TAB PO SCH (08:54)
--- NOTE | 2017-02-08 10:29 | Psychiatric Progress Notes ---
Progress Note Date of Service Feb 08, 2017. Interval History 31-year-old woman with a long history of depression, admitted voluntarily with suicidality and inability to function. Chief Complaint "I'm still really worried about school". Subjective Patient was seen & assessed interval progress reviewed with Nursing. Staff report she is reporting improved mood and decreased side effects to medications. Her friends visited, and she talked about her school stress. She has a meeting with her grandmother today. Today, she states that mood and anxiety have both improved, but she is still worried about school, thinking that she could be kicked out for "abandoning my clients, it is not professional. " We spent some time discussing the importance of attending to her own health, and that she will be provided with a doctor's note on discharge from the hospital which will excuse the time that she missed due to being admitted. She was concerned that note would reveal that she was on a psychiatric unit, and we discussed the wording and that it will be generic. She enjoys her program of study, and states that she is determined to complete it, even if it takes her more time than expected. She denies panic attacks and she was admitted to the hospital, and thinks that has been helpful for her to get a break from school. She is working on a plan for incorporating good self-care and stress management into her regular life. She notes that the next couple weeks will be a lower work load, because of the holiday next week, and that she plans to go [place] [facility] [place] [facility]. She is going to call the [facility] psych clinic to see if she can get additional Trintellix samples, as she only has one day left, and the co-pay is $60 which is a financial burden for her. Sleep Information Total Hours of Sleep: 7.00 Meal Information Percent of Breakfast Consumed: 100 Percent of Lunch Consumed: 100 Percent of Dinner Consumed: 90 Mental Status Exam During interview pt is: alert and oriented, cooperative Appearance: appropriately dressed, appropriately groomed Eye contact is: good Motor behavior is: steady gait & station, no abnormal motor movements Speech: normal in rate, rhythm & volume Affect: blunted Mood is: other ("a little better") Thought process: goal directed Thought content: reality based without delusions Suicidal thought are: denied Homicidal thoughts are: denied Hallucinations: denies auditory, denies visual Cognition: memory grossly intact, attention grossly intact, language grossly intact Intelligence estimated to be: average Insight: impaired Judgement: impaired Impression Adjusting well to the structure and support of the milieu. Trintellix preauth' d and affordable. Will continue 10 mg today. Planning for discharge tomorrow as long as she continues to improve and stabilize. Plan (1) Major depressive disorder, recurrent severe without psychotic features 02/06 - For now will increase Trintellix to 10 mg daily and proceed with a preauthorization. - Continue current doses of Lexapro and Wellbutrin - Obtain outpatient records from Dr. Morgan. - Coordinate with her outpatient therapist - Family meeting if indicated or possibly with roommate - Every 15 minute checks for safety - Encourage participation in group and individual counseling - Assist the patient to explore and utilize healthy coping strategies - Encourage daily exercise - Provide the patient with information regarding TMS - Communicate with the office of student affairs as needed 02/07 - Trintellix copay $60 per month and can afford. Continue 10 mg. daily 02/08 - Patient is going to call the [facility] psych clinic to determine if she can get more samples, or if she will need to pay the $60 co-pay. She is working on her discharge safety plan and a plan to better deal with stress when she returns home. Discharge / Aftercare Planning Primary Care Physician: Name: [facility] Appointment Notes: As needed Psychiatrist: Name: Dr. Morgan at [facility] Date of Appointment: Feb 12, 2017 Time of Appointment: 3:30pm Therapist: Name: Joaquina Soto Date of Appointment: Feb 12, 2017 Time of Appointment: 11:00am Visit Code E&M Code: 91084 Inventory Assets Strengths: Intelligence, willingness to engage in treatment Needs: To increase healthy coping strategies Risk Factors Assessment : Yes /single/: Yes Higher / Fall in social status: No Health problems: No Mental Health Diagnoses: Yes Substance use disorders: No Previous attempt: Yes Family history of suicide: No Previous psychiatric stay: Yes Hopelessness: No Smoker: No Protective Factors Assessment : No Responsible for young children: No Employed: No Stable relationships: Yes Supportive family: No Good rapport with provider: Yes Data Vital Signs Last 24 Hrs: Date Time Temp Pulse Resp B/P (MAP) Pulse Ox O2 Delivery O2 Flow Rate FiO2 02/08/17 06:47 36.9 81 16 126/88 93 129/76 Meds Administered Last 24 Hrs: Meds Administered (Past 24Hrs) Medications (Trade) Dose Ordered Sig/Juan M Route Start Time Stop Time Status Last Admin Dose Admin Vortioxetine (Trintellix) 10 mg QAM PO 02/07/17 09:00 03/09/17 08:59 02/08/17 08:54 10 MG Fish Oil ([place]-3 (Purified Fish Oil) Cap) 1 gm DAILY PO 02/07/17 09:00 03/09/17 08:59 02/08/17 08:53 1 GM
[2017-02-08 20:29] LABS: SYNTHETIC CANNABINOIDS QL URIN NEGATIVE (Negative)
[2017-02-09 07:03] VITALS: BP_SYST 136; BP_SYST 138; BP_DIAS 88; BP_DIAS 91; PULSE 80; PULSE 82; TEMP 36.8
[2017-02-09] MEDS: ESCITALOPRAM OXALATE 10 MG TAB PO SCH (08:42)
[2017-02-09] MEDS: LEVONORGESTREL PO SCH (08:43)
[2017-02-09] MEDS: ETHINYL ESTRADIOL PO SCH (08:43)
[2017-02-09] MEDS: [UNRECOGNIZED DRUG - OTHER] PO SCH (08:43)
[2017-02-09] MEDS: BuPROPion XL 150 MG TABCR PO SCH (08:43)
[2017-02-09] MEDS: VORTIOXETINE HBR 5 MG TAB PO SCH (08:43)
[2017-02-09] MEDS: MULTIVITAMIN TAB PO SCH (08:43)
[2017-02-09] MEDS: OMEGA-3 (PURIFIED FISH OIL) 1 GM CAP PO SCH (08:43)
[2017-02-09] MEDS ORDERED: VORT1TAB PO (09:29)
--- NOTE | 2017-02-09 09:45 | Discharge Instructions ---
Discharge Information Report Includes Report will include the: Discharge Instructions & Summary Admission Admission Date / Time: Feb 05, 2017 at 16:20 Reason for Admission: Major Depressive Disorder Discharge Discharge Diagnosis / Problem: depression Condition at Discharge: Fair Discharge Goals Goal(s): Decrease discomfort, Improve disease control Activity Recommendations Activity Limitations: resume your previous activity . Instructions / Follow-Up Instructions / Follow-Up . SPECIAL CARE INSTRUCTIONS: 1. Follow through with your scheduled aftercare appointments. If unable to keep an appointment, please call to reschedule. 2. Take your medication only as prescribed. Medication should not be changed or stopped without the approval of your doctor. In the event of worsening symptoms or concerns about side effects, contact your doctor immediately. 3. Utilize new healthy coping skills, anger management skills, and stress management skills learned during your hospitalization. Journal feelings and process them with a support person. Identify stressors or situations that may result in relapse, deterioration or inappropriate behaviors and develop a plan to deal with those issues. 4. If your coping skills are ineffective and you are in crisis, contact your outpatient providers for direction. If unable to reach your providers, please call the CAN HELP LINE AT or go to the closest Emergency Room. 5. Avoid alcohol and un-prescribed drugs. 6. You have been provided with the Mental Health Advance Directives Pamphlet for your review. AFTERCARE APPOINTMENTS: * Please call your insurance company prior to your scheduled appointment to confirm your aftercare providers are covered. Take your insurance information to your appointments. . Discharge / Aftercare Planning Primary Care Physician: Name: [facility] Appointment Notes: As needed Psychiatrist: Name: Dr. [facility] at [facility] Date of Appointment: Feb 12, 2017 Time of Appointment: 3:30pm Therapist: Name Of Therapist: Joaquina Soto Date of Appointment: Feb 12, 2017 Time of Appointment: 11:00am . Follow-Up Care Plan for Follow-Up Care: Will return to her regular psychiatric providers Current Hospital Diet Patient's current hospital diet: Vegetarian Diet Discharge Diet Recommended Diet: Vegetarian Diet Procedures Procedures Performed: No Pending Studies Pending Studies at Discharge: No Medical Emergencies . Who to Call and When: Medical Emergencies: For questions or emergencies related to your hospital stay, please contact the Inpatient Behavioral Health Unit at [phone]. A compliance analyst is on-call 16/10 for the Behavioral Health Unit for emergencies At any time you feel your situation is an emergency, you may also call 911 immediately. . Non-Emergent Contact Non-Emergency issues call your: Psychiatrist, Therapist Advance Directives Existing Advance Directive: No Do You Have an Existing Mental: No Existing Living Will: No Existing Power of Clinical Nurse Occupational Medicine: No Advance Directives Info Given: To Pt/S.O. Advance Directives Reason: Declines as Mental Health Visit. Discharge Summary Admission HPI Per the Admitting provider: The patient is a 31-year-old woman who is currently here at [facility] studying speech therapy. She has a long history of depression having been treated for years in her home state of [place]. She has had over 10 hospitalizations there. She came to [facility] to complete a master's degree in speech therapy, having moved here in 2014. At that time she became overwhelmed , depressed, and had a hospitalization at [facility]. She feels that since that time, she has been doing relatively well, although in recent months her stress has been mounting. 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 This has been overwhelming to her and as the semester has progressed she has become more depressed. She describes feeling almost unable to function, making the analogy that she is "too tired to brush her teeth". She has been trying to push herself to get to classes and work on her obligations but feels that she is falling behind. For the last several weeks, she has been having suicidal thinking. In view of a previous suicide attempt by overdose in 2008, she came to realize that although at times her life means nothing to herself, that her life has meaning for those around her and so never wanted to be in a condition where she would attempt suicide again. She has been trying to cope with that by calling her friends who have been helping her to distract and to spend time with her. Her thoughts have been increasing and she presented to the emergency room initially the day before yesterday with severe depression but did not want to be hospitalized at that time, thinking she could manage it as an outpatient and that she would be able to continue to function. She left the ER, went home , slept for a while and woke up feeling the same if not worse in terms of her ability to function. She began worrying that she wouldn't graduate on time and thus decided that she would repeat presented to the emergency room and agreed to inpatient treatment. She has recently been seeing Dr. Gongora here at [facility] and was started on Trintellix about a week ago after a failed trial on Effexor on which she had muscle twitching. She has not felt much different but is currently only on 5 mg. She has had many trials of medications in the past none of which had a robust response. She reports that her appetite recently has been "sporadic" and has experienced some small degree of weight gain. Her energy is low describing herself as "exhausted", to the degree that she tries to conserve her energy by avoiding things like stairs or engaging in any activity that will drain her energy. She has had limited sleep lately, intentionally staying up to work on all of her projects. When she goes to bed she says that she is able to sleep. Nights tend to be worse for her symptoms however as she is alone and has very few resources. She denies any current auditory or visual hallucinations but says she did have auditory hallucinations at the age of 19. These occurred several years after her mother and she thought she heard her mother telling her to come get her at the rehabilitation center where she had once received treatment. She reports anxiety, chronic panic attacks. She has had panic attacks since the age of 15 although can go for long periods of time without 1. During a panic attack she will experience tremors, rapid breathing, a sense of dread, and wanting to flee. At times she feels paralyzed and unable to move. She denies any problems with anger stating that she generally "holds it in". She notices a seasonal deterioration to her mood and has used light therapy although has had to tone down the intensity of the light as she was feeling somewhat agitated at full strength. She has a history of engaging in self-injurious activities in the past with last occurrence about 8 years ago. She denies any discrete episodes of euphoric mood, sleeplessness or pleasure seeking behaviors that would be congruent with a bipolar disorder. Hospital Course (1) Major depressive disorder, recurrent severe without psychotic features 02/06 - For now will increase Trintellix to 10 mg daily and proceed with a preauthorization. - Continue current doses of Lexapro and Wellbutrin - Obtain outpatient records from Dr. Morgan. - Coordinate with her outpatient therapist - Family meeting if indicated or possibly with roommate - Every 15 minute checks for safety - Encourage participation in group and individual counseling - Assist the patient to explore and utilize healthy coping strategies - Encourage daily exercise - Provide the patient with information regarding TMS - Communicate with the office of student affairs as needed 02/07 - Trintellix copay $60 per month and can afford. Continue 10 mg. daily 02/08 - Patient is going to call the [facility] psych clinic to determine if she can get more samples, or if she will need to pay the $60 co-pay. She is working on her discharge safety plan and a plan to better deal with stress when she returns home. Risk Factors Assessment : Yes /single/: Yes Higher / Fall in social status: No Health problems: No Mental Health Diagnoses: Yes Substance use disorders: No Previous attempt: Yes Family history of suicide: No Previous psychiatric stay: Yes Hopelessness: No Smoker: No Protective Factors Assessment : No Responsible for young children: No Employed: No Stable relationships: Yes Supportive family: No Good rapport with provider: Yes Day of Discharge Assessment COURSE OF HOSPITALIZATION: The patient was on our unit for 4 days. She was admitted with severe depression and SI, but no attempt. She has a long history of depression having had 10 or more hospitalizations in her home state of [place] before coming to [facility] in 2014. Her primary stressor is struggling to keep up with the academic requirements of her master's program. She sees Dr. Morgan at the [facility] who had recently initiated a trial of trintellix which we continued here in the hospital increasing to 10 mg. daily. We did the preauth and cost to the patient would be about $60/mos which her grandmother agreed to help her afford. She denies any further SI after admission, and made good use of both group and individual counseling. We also discussed possible treatment with TMS in view of multiple failed trials of meds , which can be obtained locally, but recommended waiting until trial of Trintellix is evaluated. She had a phone meeting with her grandmother, who raised her, during her stay and she was quite supportive. DAY OF DISCHARGE ASSESSMENT: The patient is requesting discharge. She feels that she is ready to be discharged and get back to her academics. Her thread winder will pick her up today. She continues to deny any further suicidal ideation. Today she is casually and appropriately dressed and groomed. Gait and station are within normal limits. Eye contact is good. Affect is restricted but able to smile. Speech is of normal rate volume and tone. Thoughts are organized, goal directed, and without evidence of thought disorder. Recent and remote memory is intact per conversation. Intelligence is estimated to be average. Insight and judgment are improved over admission. Laboratory Test 02/05/17 11:12 02/05/17 11:15 Urine Color DK YELLOW Urine Appearance CLEAR Urine pH 6.5 Urine Specific [place] 1.028 Urine Protein NEG Urine Glucose (UA) NEG Urine Ketones TRACE Urine Occult Blood 1+ Urine Nitrite NEG Urine Bilirubin NEG Urine Urobilinogen NEG Urine Leukocyte Esterase NEG Urine WBC (Auto) 1-5 Urine RBC (Auto) 10-30 Urine Hyaline Casts (Auto) 1-5 Urine Epithelial Cells (Auto) 20-30 Urine Bacteria (Auto) NEG Urine Test NEG Urine Synthetic Stimulants see note Urine Opiates Screen NEG Urine Methadone, Qualitative NEG Urine Barbiturates NEG Urine Phencyclidine (PCP) Level NEG Ur Amphetamine/Methamphetamine NEG MDMA (Ecstasy) Screen POS Urine Benzodiazepines Screen NEG Urine Cocaine Metabolite NEG Cannabinoids Comment see note Urine Synthetic Cannabinoids NEGATIVE Ur Synthetic Cannabinoids Confirm Urine Marijuana (THC) NEG White Blood Count 7.50 Red Blood Count 5.21 Hemoglobin 14.7 Hematocrit 44.8 Mean Corpuscular Volume 86.0 Mean Corpuscular Hemoglobin 28.2 Mean Corpuscular Hemoglobin Concent 32.8 Platelet Count 363 Mean Platelet Volume 10.1 Neutrophils (%) (Auto) 66.1 Lymphocytes (%) (Auto) 24.1 Monocytes (%) (Auto) 7.2 Eosinophils (%) (Auto) 2.1 Basophils (%) (Auto) 0.4 Neutrophils # (Auto) 4.95 Lymphocytes # (Auto) 1.81 Monocytes # (Auto) 0.54 Eosinophils # (Auto) 0.16 Basophils # (Auto) 0.03 RDW Standard Deviation 43.4 RDW Coefficient of Variation 13.8 Immature Granulocyte % (Auto) 0.1 Immature Granulocyte # (Auto) 0.01 Sodium Level 138 Potassium Level 3.6 Chloride Level 102 Carbon Dioxide Level 26 Anion Gap 10.0 Blood Urea Nitrogen 8 Creatinine 0.94 Est Creatinine Clear Calc Drug Dose 90.6 Estimated GFR () 92.4 Estimated GFR (Non- 79.7 BUN/Creatinine Ratio 8.7 Random Glucose 86 Calcium Level 8.8 Total Bilirubin 0.5 Aspartate Amino Transferase (AST) 16 Alanine Aminotransferase (ALT) 27 Alkaline Phosphatase 92 Total Protein 8.3 Albumin 3.7 Globulin 4.6 Albumin/Globulin Ratio 0.8 Thyroid Stimulating Hormone (TSH) 3.790 Salicylates Level < 1.7 Acetaminophen Level < 2 Ethyl Alcohol mg/dL < 3.0 Total Time Total Time Spent (min): Greater than 30 minutes Total Time Included: examination of the patient, discharge planning, medication reconciliation, communication with other providers Tobacco Cessation at Discharge Smoking Status: Never Smoker FDA approved Prescription: non-smoker
== END 2017-02-09 11:07 | disposition home or self-care (01) | DRG 885 ==
LOC: C.EDB 10:50 → ENRESERV 15:35 → C.MHU 16:20
PROVIDERS: ADMIT Psychiatry & Neurology Psychiatry; ATTEND Psychiatry & Neurology Psychiatry
DX: F33.2 Major depressive disorder, recurrent severe without psychotic features (principal); R45.851 Suicidal ideations; E66.9 Obesity, unspecified; Z79.899 Other long term (current) drug therapy; Z81.8 Family history of other mental and behavioral disorders; Z81.1 Family history of alcohol abuse and dependence; Z68.35 Body mass index [BMI] 35.0-35.9, adult

== ENCOUNTER 2017-11-10 01:05 | Emergency (ER) | payer OTHER ==
[~2017-11-10] VITALS: Ht 162.6 cm; Wt 94.7 kg
[~2017-11-10 01:05] MED LIST changes: -BUPR-79 PO; +BUPRTAB PO
[2017-11-10 01:09] VITALS: TEMP 37.2; Ht 162.6 cm; Wt 94.7 kg
[2017-11-10] MEDS ORDERED: ONDANSETRON INJ 2 MG/ML 2 ML VIAL ONE (01:32)
[2017-11-10] MEDS ORDERED: SODIUM CHLORIDE 0.9% 1000ML 1,000 ML IV STA (01:35)
--- NOTE | 2017-11-10 01:41 | EMERGENCY ROOM VISIT NOTE ---
History Report prepared by Adrianne: Caleb Coon Under the Supervision of: Dr. Joan Ram D.O. First contact with patient: 01:18 Chief Complaint: DEHYDRATION Stated Complaint: DEHYDRATION Nursing Triage Summary: Pt states that she has been doing 3 all-nighters this week studying. Pt states she hasn't eaten in 24 hrs. hasn't slept. Pt stares off and stops talking. Pt states that she passed out today. Pt could not go into detail, denies syncopal episode, states "I just fell over." Pt states she has been drinking only caffeine beverages and then stopped. States she tried to drink water today but couldn't, states it came back up. History of Present Illness The patient is a 32 year old female who presents to the Emergency Room with complaints of constant dehydration that began today. Patient states she has pulled "3 all-nighters" this week and has not eaten in the past 24 hours. She states she was worried about finishing her master's paper which was due today. She states tonight she tried to go to sleep but woke dehydrated and with the "headache of her life". She states she tried drinking water but ended up vomiting it back up. She adds she has had nausea, a sore throat, and a waxing and waning fever. She adds she had a syncope episode earlier today as well. She denies a history of similar symptoms. Patient states she does not have menstrual periods anymore. Past medical history includes depression. Patient denies a history of other medical issues. She denies leg cramping/swelling and trouble breathing. Patient states she drove herself to the ER. Source of History: patient Onset: Today Position: head Timing: constant Modifying Factors (Relieving): other (None) Associated Symptoms: + fevers, + headache, + sorethroat, + nausea, + vomiting, No SOB Note: Negative leg cramping/swelling. Review of Systems See HPI for pertinent positives & negatives. A total of 10 systems reviewed and were otherwise negative. Past Medical & Surgical Medical Problems: (1) Anxiety (2) Class II obesity (3) Depression (4) Major depressive disorder, recurrent severe without psychotic features Family History Patient reports no known family medical history. Social History Smoking Status: Never Smoker Alcohol Use: none Drug Use: none Marital Status: in relationship Housing Status: lives with roommate Occupation Status: [employer] student Current/Historical Medications Scheduled Control Pills ( Control Pills), 1 TAB PO DAILY Bupropion Hcl (Wellbutrin Xl), 150 MG PO QAM Fish Oil ([place]-3), 1 CAP PO DAILY Propranolol (Inderal), 10 MG PO QAM Vortioxetine HBr (Trintellix), 20 MG PO DAILY Allergies Coded Allergies: Fluoxetine (Verified Allergy, Intermediate, SHORTNESS OF BREATH, 02/05/17) Venlafaxine (Verified Allergy, Intermediate, uncontrolled left arm movement, 02/05/17) Physical Exam Vital Signs Date Time Temp Pulse Resp B/P (MAP) Pulse Ox O2 Delivery O2 Flow Rate FiO2 11/10/17 04:18 97 16 140/100 99 11/10/17 03:16 98 16 139/102 98 Room Air 11/10/17 01:37 100 11/10/17 01:09 37.2 102 20 161/104 97 Room Air Physical Exam HEENT: Head - normocephalic and atraumatic Pupils are equal, round, and reactive to light. Extraocular eye muscles are intact, and sclera are anicteric. Nose - moist nasal mucosa without discharge. Mouth - moist buccal mucosa. Oropharynx is nonerythematous and there is no tonsillar exudate or edema noted. Neck: Supple; no JVD, nuchal rigidity, cervical lymphadenopathy. Heart: Regular rate and rhythm. There is a normal S1 and S2 with no murmurs, clicks, or gallops appreciated. Lungs: Clear to auscultation bilaterally with no wheezes, rales, or rhonchi. Abdomen: Soft, completely nontender, nondistended, with good bowel sounds. There are no palpable pulsatile masses or hepatosplenomegaly. There is no guarding, rigidity, or rebound noted. Extremities: No evidence of cyanosis, clubbing, or edema. There are easily palpable peripheral pulses. Skin: Pale, warm, and dry with good turgor and no rashes. Medical Decision & Procedures Laboratory Results 11/10/17 01:25 Red Blood Count 4.72, Mean Corpuscular Volume 87.1, Mean Corpuscular Hemoglobin 28.8, Mean Corpuscular Hemoglobin Concent 33.1, Mean Platelet Volume 11.0, Neutrophils (%) (Auto) 71.4, Lymphocytes (%) (Auto) 19.0, Monocytes (%) (Auto) 7.9, Eosinophils (%) (Auto) 1.2, Basophils (%) (Auto) 0.2, Neutrophils # (Auto) 9.23, Lymphocytes # (Auto) 2.46, Monocytes # (Auto) 1.02, Eosinophils # (Auto) 0.15, Basophils # (Auto) 0.02 11/10/17 01:25 Test 11/10/17 01:25 White Blood Count 12.92 K/uL (4.8-10.8) Red Blood Count 4.72 M/uL (4.2-5.4) Hemoglobin 13.6 g/dL (12.0-16.0) Hematocrit 41.1 % (37-47) Mean Corpuscular Volume 87.1 fL (80-100) Mean Corpuscular Hemoglobin 28.8 pg (25-34) Mean Corpuscular Hemoglobin Concent 33.1 g/dl (32-36) Platelet Count 357 K/uL (130-400) Mean Platelet Volume 11.0 fL (7.4-10.4) Neutrophils (%) (Auto) 71.4 % Lymphocytes (%) (Auto) 19.0 % Monocytes (%) (Auto) 7.9 % Eosinophils (%) (Auto) 1.2 % Basophils (%) (Auto) 0.2 % Neutrophils # (Auto) 9.23 K/uL (1.4-6.5) Lymphocytes # (Auto) 2.46 K/uL (1.2-3.4) Monocytes # (Auto) 1.02 K/uL (0.11-0.59) Eosinophils # (Auto) 0.15 K/uL (0-0.5) Basophils # (Auto) 0.02 K/uL (0-0.2) RDW Standard Deviation 43.9 fL (36.4-46.3) RDW Coefficient of Variation 13.8 % (11.5-14.5) Immature Granulocyte % (Auto) 0.3 % Immature Granulocyte # (Auto) 0.04 K/uL (0.00-0.02) Anion Gap 11.0 mmol/L (3-11) Est Creatinine Clear Calc Drug Dose 121.2 ml/min Estimated GFR () 124.5 Estimated GFR (Non- 107.5 BUN/Creatinine Ratio 11.5 (10-20) Calcium Level 8.2 mg/dl (8.5-10.1) Laboratory results per my review. Medications Administered Medications (Trade) Dose Ordered Sig/Juan M Route Start Time Stop Time Status Last Admin Dose Admin Ondansetron HCl (Zofran Inj) 4 mg STK-MED ONCE .ROUTE 11/10/17 01:32 11/10/17 01:33 DC 11/10/17 01:35 4 MG Sodium Chloride 1,000 ml @ 999 mls/hr Q1H1M STAT IV 11/10/17 01:35 11/10/17 02:35 DC 11/10/17 01:39 999 MLS/HR Ketorolac Tromethamine (Toradol Inj) 30 mg NOW STAT IV 11/10/17 03:27 11/10/17 03:29 DC 11/10/17 03:47 30 MG Procedure Zofran Inj 4mg IV and Sodium Chloride 1000 ml @ 999 mls/hr IV. ED Course 0128: Past medical records reviewed. The patient was evaluated in room B9. A complete history and physical exam was performed. An IV lock was initiated and labs are drawn as above. 0132: Zofran Inj 4mg IV 0135: Sodium Chloride 1000 ml @ 999 mls/hr IV. 0315: I reassessed the patient who is resting comfortably. 0324: I reevaluated the patient. Patient states she was able to get up and go to the bathroom. She adds she is feeling better but still has a headache. Patient will receive a dose of Toradol. Patient is drinking Gatorade and eating crackers. 0327: Toradol Inj 30mg IV 0408: Upon reevaluation, the patient is sound asleep and snoring. I woke her up and she states her headache has resolved. She states she feels comfortable going home. I discussed findings and results with her. She verbalized agreement of the treatment plan. She was discharged home. Medical Decision The patient is a 32 year old female who presents to the ED with constant dehydration. Differential diagnosis includes dehydration, gastritis, depression , hypoglycemia, and viral illness. Lab results show WBC = 12.9, stable H&H, potassium = 3.2, normal renal function , and glucose = 108. This is a 32-year-old female patient who describes sleep deprivation over the past 3 days and decreased oral intake. She felt that she may be dehydrated. She was given IV fluids and some Zofran to prevent further vomiting. She also complained of headache and was given IV Toradol. She was feeling much better at the time of discharge. Patient's potassium was noted to be slightly low. She is encouraged to take foods high in potassium. Medication Reconcilliation Current Medication List: was personally reviewed by me Blood Pressure Screening Patient's blood pressure: Elevated blood pressure Blood pressure disposition: Referred to PCP Impression Primary Impression: Vomiting Additional Impression: Hypokalemia Scribe Attestation The scribe's documentation has been prepared under my direction and personally reviewed by me in its entirety. I confirm that the note above accurately reflects all work, treatment, procedures, and medical decision making performed by me. Departure Information Dispostion Home / Self-Care Referrals No Doctor, Assigned (PCP) Forms HOME CARE DOCUMENTATION FORM, IMPORTANT VISIT INFORMATION, WORK / SCHOOL INSTRUCTIONS Patient Instructions Hypokalemia Dc, My [facility], Vomiting - [facility] Additional Instructions Rest. Get plenty of sleep Keep yourself well-hydrated Take foods high in potassium Problem Qualifiers Primary Impression: Vomiting Vomiting type: unspecified Vomiting Intractability: non-intractable Nausea presence: with nausea Qualified Codes: R11.2 - Nausea with vomiting, unspecified
[2017-11-10 02:11] LABS: BASO % 0.2 %; BASO ABS # 0.02 K/uL (0-0.2); EOS % 1.2 %; EOS ABS # 0.15 K/uL (0-0.5); HEMATOCRIT 41.1 % (37-47); HEMOGLOBIN 13.6 g/dL (12.0-16.0); IG# 0.04 K/uL (0.00-0.02); LYMPH ABS # 2.46 K/uL (1.2-3.4); MEAN CELL VOLUME 87.1 fL (80-100); MEAN CORPUSCULAR HEMOGLOBIN 28.8 pg (25-34); MEAN CORPUSCULAR HGB CONC 33.1 g/dl (32-36); MONO % 7.9 %; MONO ABS # 1.02 K/uL (0.11-0.59); NEUT % 71.4 %; NEUT ABS # 9.23 K/uL (1.4-6.5); PLATELET COUNT 357 K/uL (130-400); RED CELL DISTRIBUTION WIDTH CV 13.8 % (11.5-14.5); RED CELL DISTRIBUTION WIDTH SD 43.9 fL (36.4-46.3); WHITE BLOOD COUNT 12.92 K/uL (4.8-10.8)
[2017-11-10 02:30] LABS: CALCIUM 8.2 mg/dl (8.5-10.1); CREATININE 0.73 mg/dl (0.60-1.20); POTASSIUM 3.2 mmol/L (3.5-5.1)
[2017-11-10] MEDS ORDERED: KETOROLAC TROMETHAMINE 30 MG/ML VIAL IV STA (03:27)
[2017-11-10] MEDS ORDERED: VORT1TAB3 PO (03:45)
[2017-11-10] MEDS ORDERED: PROP10TA7 PO (03:46)
[2017-11-10 04:18] VITALS: BP 140/100; PULSE 97; O2SAT 99
== END 2017-11-10 04:18 | disposition home or self-care (01) ==
LOC: C.EDB 01:06
DX: R11.2 Nausea with vomiting, unspecified (principal); E87.6 Hypokalemia; E86.0 Dehydration; R51 Headache; J02.9 Acute pharyngitis, unspecified; F32.9 Major depressive disorder, single episode, unspecified; Z79.3 Long term (current) use of hormonal contraceptives; Z79.899 Other long term (current) drug therapy; Z88.8 Allergy status to other drugs, medicaments and biological substances